=== PATIENT | male | born 1935 | race Caucasian/White ===

== ENCOUNTER 2022-07-20 18:26 | Emergency (ER) | payer OTHER ==
[~2022-07-20] VITALS: Ht 188 cm; Wt 80.7 kg
--- NOTE | 2022-07-20 19:30 | NUR ---
LAB AT BEDSIDE
--- NOTE | 2022-07-20 19:35 | NUR ---
RECEIVED PT IN BED ROOM 9, PT IS RESTING COMFORATBLY IN BED, AAOX1 AND FOLLOWS SOME SIMPLE COMMANDS. CONNECTED TO MONITOR. WILL CONTINUE TO MONITOR
[2022-07-20 20:05] LABS: CALCIUM, SERUM 7.8 mg/dL (8.5-10.1); CARBON DIOXIDE 24 mmol/L (21-32); CHLORIDE 105 mmol/L (98-107); CREATININE 2.5 mg/dL (0.6-1.3); GLUCOSE 118 mg/dL (74-106); POTASSIUM 4.4 mmol/L (3.5-5.1); SODIUM SERUM 137 mmol/L (136-145); UREA NITROGEN, BLOOD 39 mg/dL (7-18)
[2022-07-20] MEDS ORDERED: LIDOCAINE 2% JEL UROJET 10 ML MM ONE (20:10)
[2022-07-20 20:12] LABS: BASOPHILS % (AUTO) 0.7 % (0.0-2.0); HEMATOCRIT 23 % (39-51); HEMOGLOBIN 8.1 g/dL (13.5-17.5); LYMPHOCYTES # (AUTO) 0.3 K/uL (0.8-4.8); LYMPHOCYTES % (AUTO) 8.9 % (20.0-44.0); MEAN CORPUSCULAR HGB CONC 36 g/dl (31.0-36.0); MEAN CORPUSCULAR VOLUME 117 fL (80-96); MONOCYTES # (AUTO) 0.4 K/uL (0.1-1.30); MONOCYTES % (AUTO) 11.5 % (2.0-12.0); NEUTROPHILS % (AUTO) 78.9 % (43.0-81.0); PLATELET COUNT (AUTO) 237 K/uL (150-450); WHITE BLOOD COUNT (AUTO) 3.8 K/uL (4.3-11.0)
[2022-07-20 20:14] LABS: RED BLOOD CELL COUNT(AUTO) 1.94 MIL/uL (4.5-6.0)
--- NOTE | 2022-07-20 20:29 | NUR ---
URINE SAMPLE COLLECTED AND SENT TO LAB
--- NOTE | 2022-07-20 20:35 | NUR ---
COVID SWAB COLLECTED AND SENT TO LAB
[2022-07-20 20:39] LABS: BAND % (MANUAL) 2 % (0.0-5.0); LYMPHOCYTES % (MANUAL) 14 % (16-48); MONOCYTES % (MANUAL) 5 % (0-11.0); NEUTROPHILS % (MANUAL) 79 (42-76)
[2022-07-20 20:46] LABS: BILIRUBIN,URINE NEGATIVE (NEGATIVE); COLOR,URINE YELLOW (YELLOW); LEUKOCYTE ESTERASE ,URINE NEGATIVE (NEGATIVE); NITRITE, URINE NEGATIVE (NEGATIVE); PH,URINE 5.5 (5.0-8.0); PROTEIN,URINE NEGATIVE (NEGATIVE); UGLUCOSE NEGATIVE (NEGATIVE); UROBILINOGEN,URINE 0.2 EU/dL (0.2)
[2022-07-20 21:36] LABS: BACTERIA,URINE None seen /HPF (None Seen); SQUAMOUS EPITHELIAL CELL,UR 0-2 /HPF (None Seen); WBC,URINE 0-2 /HPF (0-3)
[2022-07-20] MEDS ORDERED: PIPERACILLIN /TAZOBACTAM 3.375 G in IV D5W 50 ML IV ONE (22:00)
[2022-07-20] MEDS ORDERED: PIPERACILLIN /TAZOBACTAM 3.375 G VIAL IV ONE (22:04)
[2022-07-20] MEDS ORDERED: LEVO250T59 PO (23:13)
[2022-07-21] MEDS ORDERED: OLANZAPINE 10 MG VIAL IM ONE ×2 (00:09→00:30)
--- NOTE | 2022-07-21 06:39 | NUR ---
FABRICIO GRANT [phone] WAITING FOR A CAREGIVER TO BECOME AVAILABLE FROM [employer] [facility] [employer] (TEL:[phone]) EXPECTED TIME BETWEEN 8-11AM
--- NOTE | 2022-07-21 08:31 | NUR ---
PER [facility], NO CAREGIVER AVAILABLE YET, WILL NOTIFY INSURANCE ONCE A CAREGIVER IS AVAILABLE
--- NOTE | 2022-07-21 08:50 | NUR ---
PER [facility], THEY ARE WAITING FOR SITTER, WILL CALL IN 10MINS FOR UPDATE
[2022-07-21] MEDS ORDERED: TAMS-12 PO (09:12)
[2022-07-21] MEDS ORDERED: DILT-32 PO (09:12)
[2022-07-21] MEDS ORDERED: FERR325T23 PO (09:12)
[2022-07-21] MEDS ORDERED: VALA100026 PO (09:12)
[2022-07-21] MEDS ORDERED: CHOL100043 PO (09:12)
[2022-07-21] MEDS ORDERED: THIA100T88 PO (09:12)
[2022-07-21] MEDS ORDERED: GLUC-108 PO (09:12)
[2022-07-21] MEDS ORDERED: LEVE500T20 PO (09:12)
[2022-07-21] MEDS ORDERED: FOLI0.4T6 PO (09:12)
[2022-07-21] MEDS ORDERED: FINA5TAB11 PO (09:12)
[2022-07-21] MEDS ORDERED: TIOT18CA3 IH (09:12)
[2022-07-21] MEDS ORDERED: FAMO20TA8 PO (09:12)
--- NOTE | 2022-07-21 10:20 | NUR ---
CALLED [facility] TO FOLLOW UP, NO ANSWER. CALLED [facility] [employer] [facility], NO PATENT EXAMINER, LEFT MESSAGE
[2022-07-21] MEDS ORDERED: LEVETIRACETAM (250 MG) 250 MG TABLET PO ONE (10:30)
[2022-07-21] MEDS ORDERED: LEVETIRACETAM (500MG) 500 MG in IV NS 0.9% 100 ML IV SCH (10:30)
--- NOTE | 2022-07-21 11:13 | NUR ---
[facility] NO SITTER YET, STILL WAITING FOR [facility] RESPONSE. ALSO, DAUGHTER IS IN COMMUNICATION WITH [facility] JONATHAN LAO
--- NOTE | 2022-07-21 11:15 | NUR ---
[facility] DAUGHTER [phone]
--- NOTE | 2022-07-21 11:25 | NUR ---
NABORTER WILL BE THERE AT 1300, [facility] ASKED THAT WE ARRANGE TRANSPORTATION FOR THE PT
--- NOTE | 2022-07-21 11:34 | NUR ---
[facility] ETA 1230. BLS TRANSPORT.
[2022-07-21 13:09] VITALS: BP 126/93
--- NOTE | 2022-07-21 13:11 | NUR ---
Patient discharged to home in stable condition. Written and verbal after care instructions given to EMT verbalizes understanding of instruction.
== END 2022-07-21 13:11 ==
LOC: ER 19:26
DX: J18.9 Pneumonia, unspecified organism (principal); R41.82 Altered mental status, unspecified; N17.9 Acute kidney failure, unspecified; D53.9 Nutritional anemia, unspecified; Z20.822 Contact with and (suspected) exposure to COVID-19; G31.9 Degenerative disease of nervous system, unspecified; I48.91 Unspecified atrial fibrillation; N40.0 Benign prostatic hyperplasia without lower urinary tract symptoms; M32.9 Systemic lupus erythematosus, unspecified; I12.9 Hypertensive chronic kidney disease with stage 1 through stage 4 chronic kidney disease, or unspecified chronic kidney disease; N18.9 Chronic kidney disease, unspecified; Z86.73 Personal history of transient ischemic attack (TIA), and cerebral infarction without residual deficits; G40.909 Epilepsy, unspecified, not intractable, without status epilepticus; Z79.899 Other long term (current) drug therapy
CPT/HCPCS: 99285; 96365; 70450; 71045; 87426; 93005 ×2; 85025; 80048; 87040 ×2; 83605; 81001; 36415; 84484 ×2; 83880; 96367; 96372; 85007; J3490 ×2; J2543; C9803; J7030; J1953